=== PATIENT | female | born 1970 | race Caucasian/White ===

== ENCOUNTER → 2023-07-25 07:42 | Outpatient (REF) | payer OTHER, SELFPAY | LOC: RAD 07:42 | PROVIDERS: ATTENDING PHYSICIAN Nurse Practitioner Family; FAMILY PHYSICIAN Nurse Practitioner | DX: N83.202 Unspecified ovarian cyst, left side (principal) | CPT/HCPCS: 76830; 76856 ==

== ENCOUNTER → 2024-03-25 14:11 | Outpatient (REF) | payer OTHER, SELFPAY | LOC: WDC 14:11 | PROVIDERS: ATTENDING PHYSICIAN Nurse Practitioner Family; FAMILY PHYSICIAN Nurse Practitioner | DX: Z12.31 Encounter for screening mammogram for malignant neoplasm of breast (principal) | CPT/HCPCS: 77063; 77067 ==

== ENCOUNTER → 2024-08-05 11:08 | Outpatient (REF) | payer OTHER, SELFPAY | LOC: DHSLP 11:08 | PROVIDERS: ATTENDING PHYSICIAN Nurse Practitioner; FAMILY PHYSICIAN Internal Medicine | DX: G47.30 Sleep apnea, unspecified (principal); R06.83 Snoring | CPT/HCPCS: 95800 ==

== ENCOUNTER → 2024-08-17 12:59 | Outpatient (REF) | payer OTHER, SELFPAY | LOC: HWRAD 12:59 | PROVIDERS: ATTENDING PHYSICIAN Internal Medicine; FAMILY PHYSICIAN Nurse Practitioner | DX: R06.02 Shortness of breath (principal) | CPT/HCPCS: 71046 ==

== ENCOUNTER 2024-10-29 08:59 | Emergency (ER) | payer OTHER, SELFPAY ==
[2024-10-29 09:02] VITALS: BP 208/110
--- NOTE | 2024-10-29 09:16 | EDRN ---
Avel Britton PA in room w/ pt at this time.
--- NOTE | 2024-10-29 09:23 | ED.GENMED ---
History of Present Illness
General
Chief Complaint: Abdominal Pain
Time Seen by Provider: 10/29/24 09:13
History of Present Illness
History of Present Illness:
53-year-old female presents to the emergency department for evaluation of intense waves of upper abdominal pain occurring intermittently over the past several weeks. She notes the pain maximize last night and she had a syncopal event secondary to
pain. She reports a sharp stabbing pain in the epigastrium that radiates to the right upper quadrant, typically worsens after food intake relatively rapidly. No fevers but has had night sweats and chills associated with pain episodes. Also with
voluminous diarrhea during these episodes. Pain is mild to moderate at this time. No prior abdominal surgeries
Past History
Past History
ED Past Medical History: GERD and Other (Hiatal hernia, and factor V leiden)
ED Past Surgical History: Orthopedic
Social History
Tobacco: Non-smoker
Alcohol: None
Drug: None
Review of Systems
Review of Systems
Allergies reviewed?: Yes
All Other Systems: ROS reviewed and negative except as documented in HPI and ROS
Phy Exam
Physical Exam
Physical Exam:
GEN: Well appearing, NAD, WDWN
HEENT: Oral mucosa moist, no scleral icterus
Cardiac: Regular rate
Lung: No respiratory distress, no tachypnea
Abdomen: Soft, minimally tender to the epigastrium, no rigidity, negative Schmitz sign
MSK: No gross deformity or injuries
Skin: Good color, no pallor or jaundice, no rashes
Neuro: AO x3, moves all extremities freely
Psych: Calm, cooperative
Course
Orders/Labs/Results
Orders:
Orders
10/29/24 09:02
Electrocardiogram (*1) Urgent
Reason for Study: Syncope
EKG- Treatment ONCE
10/29/24 09:22
Famotidine [Pepcid] 20 mg IV NOW STA
Pantoprazole [Protonix IV] 40 mg IV NOW STA
10/29/24 09:23
0.9% Sodium Chloride 1000 ml [Nss] 1,000 ml IV BOLUS
10/29/24 09:48
Basic Metabolic Panel Urgent
Complete Blood Count/With Diff Urgent
Lipase Urgent
10/29/24 10:59
Sucralfate Suspension [Carafate Suspension] 1 gm PO NOW STA
US Abdomen Complete/Upper Urgent
Comment:
Reason For Exam: epigastric pain
10/29/24 11:26
Potassium Urgent
Abnormal Lab Results
10/29/24
09:48
MPV 10.6 H fL
(7.4-10.4)
Chloride 108 H mmol/L
(98-107)
Glucose 117 H mg/dl
(70-99)
10/29/24 09:48
10/29/24 11:26
Vital Signs
Initial and Last Documented VS:
Initial Vital Signs
Temp Pulse Resp BP Pulse Ox
98.2 F 91 16 208/110 97
10/29/24 09:02 10/29/24 09:02 10/29/24 09:02 10/29/24 09:02 10/29/24 09:02
Last Documented Vital Signs
Temp Pulse Resp BP Pulse Ox
98.2 F 78 16 110/74 96
10/29/24 09:02 10/29/24 13:50 10/29/24 13:50 10/29/24 13:50 10/29/24 13:50
MDM/Problems Addressed
MDM/Problems Addressed:
53-year-old female presenting with upper abdominal pain, ultrasound reveals no evidence for biliary colic. Labs are reassuring, treated with PPIs and H2 blockers. This may be gastric ulcer on the basis of her prior heavy NSAID use however she has
discontinued this recently. Will start her on PPIs and Carafate and refer to GI as an outpatient
*Pulse Oximetry
SaO2: 97
Oxygen Mode of Delivery: Room air
Patient hypoxic: no
*Critical Care Note
Total Time (30-74mins, 75-104mins- exclusive of procedures): Not Applicable
ED Attending Note
-
Portions of this chart may have been created with voice recognition software.� Occasional wrong word or��sound alike� substitutions may have occurred due to the inherent limitations of voice recognition software.
Discharge Plan
Departure
Patient Disposition: Home (Routine Discharge)
Date of Disposition: 10/29/24
Time of Disposition: 13:35
Patient with high blood pressure during this ER visit?: No
Discharge Problem:
Gastritis
Instructions: Gastritis (DC)
Prescriptions:
New
pantoprazole 40 mg tablet,delayed release (DR/EC)
40 mg PO BID Qty: 30 0RF
sucralfate [Carafate] 1 gram tablet
1 g PO ACHS Qty: 60 0RF
No Action
methylprednisolone [Medrol (Ethan)] 4 MG tablets,dose pack
4 tab PO . DIRECT Qty: 1 0RF
albuterol sulfate [Proventil HFA] 90 MCG/PUFF HFA aerosol inhaler
1 puff inhalation Q4HPRN PRN (Reason: cough) Qty: 0 0RF
levofloxacin 500 MG tablet
500 mg PO DAILY Qty: 10 0RF
ondansetron 4 MG tablet,disintegrating
4 mg PO TIDPRN PRN (Reason: nausea) Qty: 15 0RF
Referrals:
Rosangela Reich CRNP [Family Provider, Internal Medicine]
Activity Restrictions/Additional Instructions:
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
Interventions
Interventions:
*Risk Screen - Suicide Last Done: 10/29/24 10:00
*General Assessment Last Done: 10/29/24 10:00
*Neglect/Abuse Screening Last Done: 10/29/24 10:00
*ED- Fall Risk Assessment Last Done: 10/29/24 10:00
*ED COVID-19 Vaccine History Last Done: 10/29/24 10:00
*Nursing Disposition Last Done: 10/29/24 13:58
YA-Wqdknt-Fpsywrqzzt Assessment Last Done: 10/29/24 10:04
Discharge Date and Time
Discharge Date/Time: 10/29/24 13:58
Print Language: ARABIC
[2024-10-29 09:55] LABS: Hematocrit 40.9 % (37.0-47.0); Hemoglobin 13.9 g/dL (12.0-16.0); Mean Corp Hgb Conc. 34.0 g/dL (33.0-37.0); Mean Corpuscular Volume 89.5 fL (81.0-99.0); Nucleated Red Blood Cells % 0 %; Platelet Count 279 10^3/uL (130-400); Red Cell Dist. Width 12.9 % (11.5-14.5)
[2024-10-29] MEDS: PROTONIX IV 40 MG IV (09:57)
[2024-10-29] MEDS: NSS 1000 IV (09:57)
[2024-10-29] MEDS: PEPCID 20 MG IV (09:58)
[2024-10-29 10:00] VITALS: BMI 32.6
--- NOTE | 2024-10-29 10:00 | EDRN ---
Pt states she has been having pain in her epigastric area since last Friday and worse after eating, w/ nausea and started yesterday multiple softer unformed BMs than her usual, about 5 yesterday. Pt states pain at baseline is 2-3/10,
gnawing/raw/burning discomfort and intermittently becomes cramping up to 5-10/10.
[2024-10-29 10:04] VITALS: BP 121/76
[2024-10-29 10:15] LABS: Blood Urea Nitrogen 14 mg/dl (7-17); Calcium 9.7 mg/dl (8.4-10.2); Carbon Dioxide 24 mmol/L (22-30); Chloride 108 mmol/L (98-107); Estimated Creatinine Clearance > 125 ml/min; Glucose 117 mg/dl (70-99); Lipase 74 U/L (23-300); Sodium 138 mmol/L (135-145); eGFR > 60.00
[2024-10-29] MEDS: CARAFATE SUSPENSION 1 GM PO (11:30)
--- NOTE | 2024-10-29 11:30 | EDRN ---
[facility] PCT redrew and sent SST tube of blood for potassium.
[2024-10-29 11:35] VITALS: BP 124/84
[2024-10-29 12:10] LABS: Potassium 4.3 mmol/L (3.5-5.1)
[2024-10-29 12:47] VITALS: BP 120/80
--- NOTE | 2024-10-29 12:49 | EDRN ---
Pt states that post carafate had lots of belching, bloating and increased churning and pressure/discomfort/gnawing pain. Pt states it was difficult to take a deep breath in [place].
[2024-10-29 13:00] VITALS: BP 110/70
--- NOTE | 2024-10-29 13:20 | EDRN ---
Pt states that her discomfort feels like a ball of pressure in her chest and feels bloated and continuously churning sensation.
[2024-10-29 13:50] VITALS: BP 110/74
== END 2024-10-29 13:58 | disposition home or self-care (01) ==
LOC: EMR 08:59
PROVIDERS: Physician Assistant; EMERGENCY PHYSICIAN Student in an Organized Health Care Education/Training Program; FAMILY PHYSICIAN Nurse Practitioner
DX: K29.70 Gastritis, unspecified, without bleeding (principal)
CPT/HCPCS: 99285; 96374; 96375; 96361 ×2; 76700; 80048; 83690; 84132; 85025; 93005

== ENCOUNTER → 2025-01-27 14:05 | Outpatient (REF) | payer OTHER, SELFPAY | LOC: DHSLP 14:05 | PROVIDERS: ATTENDING PHYSICIAN Internal Medicine; FAMILY PHYSICIAN Internal Medicine | DX: G47.00 Insomnia, unspecified (principal); R09.02 Hypoxemia; R06.83 Snoring | CPT/HCPCS: 95810 ==

== ENCOUNTER → 2025-01-28 08:18 | Outpatient (REF) | payer OTHER, SELFPAY | LOC: DHSLP 08:18 | PROVIDERS: ATTENDING PHYSICIAN Internal Medicine; FAMILY PHYSICIAN Internal Medicine | DX: G47.11 Idiopathic hypersomnia with long sleep time (principal) | CPT/HCPCS: 95805 ==